=== PATIENT | female | born 1955 | race Caucasian/White ===

== ENCOUNTER 2017-05-12 11:29 | Day surgery (SDC) | payer BC ==
[~2017-05-12 11:29] MED LIST: Lactated Ringers 1,000 ML IV SCH; Lidocaine 1% 4 ML ONE; Lidocaine 1%/Sod Bicarbonate in NS 8.4% 1 ML Syringe PRN; Midazolam 1 MG/ML 2 ML SDV ONE; Propofol 200 MG/20 ML SDV ONE; Sodium Chloride 0.9% 10 ML Syringe FLUSH PRN; ceFAZolin 1 GM Vial ONE; fentaNYL 100 MCG/2 ML SDV ONE
[2017-05-12] MEDS ORDERED: Propofol 200 MG/20 ML SDV ONE ×2 (11:40→12:47)
[2017-05-12] MEDS ORDERED: Midazolam 1 MG/ML 2 ML SDV ONE (12:15)
[2017-05-12] MEDS ORDERED: Lidocaine 1% 30 ML SDV ONE (12:17)
[2017-05-12] MEDS ORDERED: Bupivacaine 0.25% 10 ML SDV ONE (12:17)
[2017-05-12] MEDS ORDERED: Vancomycin 1 GM, Vancomycin 500 MG in Sodium Chloride 0.9% 500 ML IV ONE (12:20)
[2017-05-12] MEDS ORDERED: Lactated Ringers 0 ML ONE (12:22)
--- NOTE | 2017-05-12 13:15 | PCM48HPAN ---
Post Anesthesia Note - EVALUATION WITHIN 48HRS OF ANESTHETIC Vital Signs in Normal Range: Yes Patient Participated in Evaluation: Yes Respiratory Function Stable: Yes Airway Patent: Yes Cardiovascular Function Stable: Yes Hydration Status Stable: Yes Pain Control Satisfactory: Yes Nausea and Vomiting Control Satisfactory: Yes Mental Status Recovered: Yes
--- NOTE | 2017-05-12 13:15 | PCM.PREANE ---
Preanesthetic Assessment - Procedure Proposed Procedure: Left CTR - Anesthesia/Transfusion/Family Hx Anesthesia History: Prior Anesthesia Without Reaction Family History of Anesthesia Reaction: No Transfusion History: No Prior Transfusion(s) Type of Transfusion Reactions: Reports: Unknown Intubation History: Unknown - Review of Systems General: No Symptoms Pulmonary: No Symptoms Cardiovascular: No Symptoms Gastrointestinal: Other (GERD) Neurological: No Symptoms, Numbness (to left hand from capral tunnel syndrome) Other: Reports: Diabetes (oral med controlled) - Physical Assessment NPO Status Date: 05/11/17 NPO Status Time: 19:00 O2 Sat by Pulse Oximetry: 95 Respiratory Rate: 20 Vital Signs: Last Vital Signs Temp 36.0 C 05/12/17 11:30 Pulse 86 05/12/17 11:30 Resp 20 05/12/17 11:30 BP 143/73 H 05/12/17 11:30 Pulse Ox 95 05/12/17 11:30 Height: 1.55 m Weight: 81.873 kg ASA Class: 2 Mental Status: Alert & Oriented x3 Airway Class: Mallampati = 2 Dentition: Reports: Normal Dentition Thyro-Mental Finger Breadths: 3 Mouth Opening Finger Breadths: 3 ROM/Head Extension: Full Lungs: Clear to auscultation, Normal respiratory effort Cardiovascular: Regular Rate, Regular Rhythm - Lab Values: Laboratory Last Values MRSA (PCR) Positive H 05/02/17 10:22 - Allergies Allergies/Adverse Reactions: Allergies Allergy/AdvReac Type Severity Reaction Status Date / Time Penicillins Allergy Anaphylactic Verified 05/12/17 12:28 Shock Sulfa (Sulfonamide Allergy Anaphylactic Verified 05/12/17 12:28 Antibiotics) Shock Tetanus Vaccines and Toxoid Allergy Anaphylactic Verified 05/12/17 12:28 Shock - Blood Blood Available: No Product(s) Available: None - Anesthesia Plan Pre-Op Medication Ordered: None Beta Tahir: Metoprolol Med Last Dose Date: 05/12/17 Med Last Dose Time: 06:00 - Acknowledgements Anesthesia Type Planned: MAC Pt an Appropriate Candidate for the Planned Anesthesia: Yes Alternatives and Risks of Anesthesia Discussed w Pt/Guardian: Yes Pt/Guardian Understands and Agrees with Anesthesia Plan: Yes PreAnesthesia Questionnaire HEENT History: Reports: Allergic Rhinitis, Sinusitis, Other (See Below) Other HEENT History: Conjunctivitis, bilateral myopia, nasal congestion, prosbyopia, astigmatism Cardiovascular History: Reports: High Cholesterol, Hypertension, Other (See Below) Other Cardiovascular History: Hypokalemia Respiratory History: Reports: None Gastrointestinal History: Reports: GERD, Other (See Below) Other Gastrointestinal History: Duodenal stricture, fatty liver disease Genitourinary History: Reports: UTI, Recurrent Musculoskeletal History: Reports: Fibromyalgia Neurological History: Reports: Migraines Psychiatric History: Reports: Anxiety, Depression, Other (See Below) Other Psychiatric History: Insomnia Endocrine/Metabolic History: Reports: Diabetes, Type II Hematologic History: Reports: Anemia Immunologic History: Reports: None Oncologic (Cancer) History: Reports: None Dermatologic History: Reports: None - Infectious Disease History Infectious Disease History: Reports: MRSA - Past Surgical History Head Surgeries/Procedures: Reports: None HEENT Surgical History: Reports: Other (See Below) Other HEENT Surgeries/Procedures: Nasal polyp removed Cardiovascular Surgical History: Reports: None Respiratory Surgical History: Reports: None GI Surgical History: Reports: Appendectomy, Cholecystectomy, Colonoscopy, EGD Female Surgical History: Reports: Hysterectomy Endocrine Surgical History: Reports: None Neurological Surgical History: Reports: None Musculoskeletal Surgical History: Reports: Carpal Tunnel Oncologic Surgical History: Reports: None Dermatological Surgical History: Reports: None - SUBSTANCE USE Smoking Status *Q: Never Smoker Second Hand Smoke Exposure: No Recreational Drug Use History: No - HOME MEDS Home Medications: Home Meds Aspirin [Halfprin] 81 mg PO DAILY 05/09/17 [History] Cetirizine [ZyrTEC] 10 mg PO DAILY 05/09/17 [History] DULoxetine [Cymbalta] 60 mg PO DAILY 05/09/17 [History] Diclofenac Sodium [Voltaren 1% Gel] 100 gm TOP ASDIRECTED PRN 05/09/17 [History] Gabapentin [Neurontin] 400 mg PO DAILY 05/09/17 [History] Hydrochlorothiazide 12.5 mg PO DAILY 05/09/17 [History] Iron,Carbonyl/Ascorbic Acid [Vitron-C Tablet] 2 tab PO DAILY 05/09/17 [History] Levothyroxine [Synthroid] 88 mcg PO DAILY 05/09/17 [History] Methocarbamol [Robaxin] 500 mg PO Q6H PRN 05/09/17 [History] Metoprolol Tartrate 50 mg PO BID 05/09/17 [History] Montelukast [Singulair] 10 mg PO DAILY 05/09/17 [History] Ranitidine HCl [Zantac 75] 75 mg PO DAILY PRN 05/09/17 [History] Rizatriptan Benzoate [Maxalt] 10 mg PO BEDTIME PRN 05/09/17 [History] atorvaSTATin [Lipitor] 40 mg PO BEDTIME 05/09/17 [History] metFORMIN HCl [Metformin HCl] 1,000 mg PO BID 05/09/17 [History] traZODone 75 mg PO BEDTIME 05/09/17 [History] Acetaminophen [Tylenol] 500 mg PO Q6HR PRN 05/12/17 [History] Acetaminophen/HYDROcodone [[place] 325-5 MG] 1 - 2 tab PO Q6H PRN #10 tablet 05/12 [Rx] Acetaminophen/traMADol [Ultracet] 50 mg PO Q6HR PRN 05/12/17 [History] - CURRENT (IN HOUSE) MEDS Current Meds: Current Medications Lactated Ringer's (Ringers, Lactated) 1,000 mls @ 125 mls/hr IV ASDIRECTED RYLEE Stop: 05/12/17 23:00 Last Admin: 05/12/17 12:00 Dose: 125 mls/hr Vancomycin HCl 1 gm/Vancomycin HCl 500 mg/ Sodium Chloride 500 mls @ 333 mls/ hr IV ONETIME ONE Stop: 05/12/17 13:50 Last Admin: 05/12/17 12:19 Dose: 333 mls/hr Lidocaine/Sodium Bicarbonate (Buffered Lidocaine 1% In Ns 8.4%) 0.25 ml .XX ONETIME PRN PRN Reason: Prior to IV Start Stop: 05/12/17 18:00 Last Admin: 05/12/17 11:59 Dose: 0.25 ml Sodium Chloride (Saline Flush) 10 ml FLUSH ASDIRECTED PRN PRN Reason: Keep Vein Open Stop: 05/12/17 18:00 Discontinued Medications Bupivacaine HCl (Sensorcaine-Mpf 0.25%) Confirm Administered Dose 30 ml .ROUTE .STK-MED ONE Stop: 05/12/17 12:18 Cefazolin Sodium (Ancef) Confirm Administered Dose 1 gm .ROUTE .STK-MED ONE Stop: 05/12/17 11:15 Cefazolin Sodium (Ancef) Confirm Administered Dose 1 gm .ROUTE .STK-MED ONE Stop: 05/12/17 11:15 Fentanyl (Sublimaze) Confirm Administered Dose 100 mcg .ROUTE .STK-MED ONE Stop: 05/12/17 10:04 Lidocaine HCl (Xylocaine-Mpf 1%) Confirm Administered Dose 4 mls @ as directed .ROUTE .STK-MED ONE Stop: 05/12/17 10:03 Lactated Ringer's (Ringers, Lactated) Confirm Administered Dose 1,000 mls @ as directed .ROUTE .STK-MED ONE Stop: 05/12/17 12:23 Lidocaine HCl (Xylocaine-Mpf 1%) Confirm Administered Dose 30 ml .ROUTE .STK- MED ONE Stop: 05/12/17 12:18 Midazolam HCl (Versed 1 Mg/Ml) Confirm Administered Dose 2 mg .ROUTE .STK-MED ONE Stop: 05/12/17 10:04 Midazolam HCl (Versed 1 Mg/Ml) Confirm Administered Dose 2 mg .ROUTE .STK-MED ONE Stop: 05/12/17 12:16 Propofol (Diprivan 20 Ml) Confirm Administered Dose 200 mg .ROUTE .STK-MED ONE Stop: 05/12/17 10:03 Propofol (Diprivan 20 Ml) Confirm Administered Dose 200 mg .ROUTE .STK-MED ONE Stop: 05/12/17 11:41 Propofol (Diprivan 20 Ml) Confirm Administered Dose 200 mg .ROUTE .STK-MED ONE Stop: 05/12/17 12:48
[2017-05-12] MEDS ORDERED: Acetaminophen/HYDROcodone 325-5 MG Tab PO ONE (14:00)
[2017-05-12 14:43] VITALS: BP 185/63
--- NOTE | 2017-05-15 23:03 | PCM.OPNOTE ---
- General Post-Op/Procedure Note Date of Surgery/Procedure: 05/12/17 Operative Procedure(s): left carpal tunnel release Pre Op Diagnosis: left median nerve compression neuropathy Post-Op Diagnosis: Same Anesthesia Technique: Local, MAC Primary Surgeon: Joao Jefferson Anesthesia Provider: Bo Potter Supervisor Engine Repair: Hortencia Rogel EBL in mLs: 5 Complications: None Condition: Good
--- NOTE | 2017-05-15 23:32 | OR ---
DATE OF OPERATION: 05/12/2017 SURGEON: Joao Jefferson MD OPERATIVE PROCEDURE: Left carpal tunnel release. PREOPERATIVE DIAGNOSIS: Left median nerve compression neuropathy. POSTOPERATIVE DIAGNOSIS: Left median nerve compression neuropathy. ANESTHESIA: Local MAC. ANESTHESIA PROVIDER: Dr. Bo Potter. ASSISTANTS: Hortencia Rogel PA-C. ESTIMATED BLOOD LOSS: Less than 5 mL. COMPLICATIONS: None. CONDITION: Stable. DESCRIPTION OF PROCEDURE: The patient was identified in the preop holding area. Proper site was marked and identified by the surgeon. The patient was taken back to the operating theater where after adequate anesthesia, the patient's left upper extremity was sterilely prepped and draped in usual sterile fashion. OR time-out was performed. The patient received no antibiotic as she is not indicated for soft tissue hand procedure. At this time, the left upper extremity had an Esmarch, used a tourniquet on the forearm. Using 1% lidocaine without epinephrine and 0.25% Marcaine without epinephrine, the palmar cutaneous branch of the median nerve was anesthetized dorsally, 10 cm proximal to the distal wrist crease. At this time, the incisional site was also anesthetized using the same mixture using Rincon's cardinal line on the ulnar border of the fourth digit. Incision was then made, taken down to the palmar cutaneous fascia. Palmar cutaneous fascia was then incised with a [place] blade. [place] blade was then used to make a small rent in transverse carpal ligament. A [place] elevator was then placed distally under the transverse carpal ligament and this was released all the way distally just stopping short of palmar arch. This found to be adequate release. Attention was turned proximally. A tenotomy scissor was then used for release of the superficial forearm fascia and the transverse carpal ligament to make sure to keep the tips ulnar to protect the palmar cutaneous branch of the median nerve. There was found to be adequate release both proximally and distally. Adequate saline was then irrigated through the wound. A 4-0 nylon simple suture was used for closure of the skin. The patient tolerated the procedure well and sent to PACU in stable condition. OPERATION PERFORMED: MMODAL /[id number]
== END 2017-05-12 14:30 | disposition home or self-care (01) ==
LOC: JD.SDS 11:29
PROVIDERS: ATTEND Orthopaedic Surgery
PROC: 01N50ZZ Release Median Nerve, Open Approach (ICD-10-PCS; principal; 2017-05-12)
DX: G56.12 Other lesions of median nerve, left upper limb (principal); E11.9 Type 2 diabetes mellitus without complications; K76.0 Fatty (change of) liver, not elsewhere classified; K21.9 Gastro-esophageal reflux disease without esophagitis; I10 Essential (primary) hypertension
CPT/HCPCS: 64721; 87641; A9270; J0690; J2250; J3010; J3370; J7040; J7120; 01810; J2704

== ENCOUNTER 2020-03-23 09:05 | Day surgery (SDC) | payer OTHER, BC ==
--- NOTE | 2020-03-21 13:37 | PCM.PREANE ---
Preanesthetic Assessment - Procedure Proposed Procedure: Right CTR and Right First carpometacarpal joint arthroplasty - Anesthesia/Transfusion/Family Hx Anesthesia History: Prior Anesthesia Without Reaction Family History of Anesthesia Reaction: No Transfusion History: No Prior Transfusion(s) Intubation History: Unknown - Review of Systems General: No Symptoms Pulmonary: No Symptoms (Asthma-Flovent taken and zyrtec./DANIELE no CPAP) Cardiovascular: No Symptoms (HTN) Gastrointestinal: No Symptoms (GERD-controlled), Constipation Neurological: No Symptoms (fibromyalgia), Headache (migraines) Other: Reports: Diabetes (Am blood sugar=), Liver Problems (non ETOH fatty liver ), Thyroid Problems (hypothyroid), Sinus Problem (seasonal allergies), Neck Pain (01/10), Depression, Anxiety - Physical Assessment NPO Status Date: 03/22/20 NPO Status Time: 18:30 Vital Signs: HR:79 BP:119/44 Sat:98% Temp:97.7 Resp:16 Height: 1.55 m Weight: 81 kg ASA Class: 2 Mental Status: Alert & Oriented x3 Airway Class: Mallampati = 2 Dentition: Reports: Normal Dentition, Caries Thyro-Mental Finger Breadths: 3 Mouth Opening Finger Breadths: 3 ROM/Head Extension: Full Lungs: Clear to Auscultation, Normal Respiratory Effort Cardiovascular: Regular Rate, Regular Rhythm, No Murmurs - Lab Values: All labs reviewed and noted and within acceptable ranges to proceed with scheduled procedure. - Imaging/EKG Impressions: EKG: SR rate=75, abnormal R wave progression - Allergies Allergies/Adverse Reactions: Allergies Allergy/AdvReac Type Severity Reaction Status Date / Time Penicillins Allergy Anaphylactic Verified 03/22/20 14:43 Shock Sulfa (Sulfonamide Allergy Anaphylactic Verified 03/22/20 14:43 Antibiotics) Shock - Anesthesia Plan Pre-Op Medication Ordered: Beta Tahir Beta Tahir: Metoprolol Med Last Dose Date: 03/23/20 Med Last Dose Time: 07:00 - Acknowledgements Anesthesia Type Planned: General Anesthesia Pt an Appropriate Candidate for the Planned Anesthesia: Yes Alternatives and Risks of Anesthesia Discussed w Pt/Guardian: Yes Pt/Guardian Understands and Agrees with Anesthesia Plan: Yes PreAnesthesia Questionnaire HEENT History: Reports: Allergic Rhinitis, Sinusitis, Other (See Below) Other HEENT History: Conjunctivitis, bilateral myopia, nasal congestion, prosbyopia, astigmatism Cardiovascular History: Reports: High Cholesterol, Hypertension, Other (See Below) Other Cardiovascular History: Hypokalemia Respiratory History: Reports: None Gastrointestinal History: Reports: GERD, Other (See Below) Other Gastrointestinal History: Duodenal stricture, fatty liver disease Genitourinary History: Reports: UTI, Recurrent Musculoskeletal History: Reports: Fibromyalgia Neurological History: Reports: Migraines Psychiatric History: Reports: Anxiety, Depression, Other (See Below) Other Psychiatric History: Insomnia Endocrine/Metabolic History: Reports: Diabetes, Type II Hematologic History: Reports: Anemia Immunologic History: Reports: None Oncologic (Cancer) History: Reports: None Dermatologic History: Reports: None - Infectious Disease History Infectious Disease History: Reports: MRSA - Past Surgical History Head Surgeries/Procedures: Reports: None HEENT Surgical History: Reports: Other (See Below) Other HEENT Surgeries/Procedures: Nasal polyp removed Cardiovascular Surgical History: Reports: None Respiratory Surgical History: Reports: None GI Surgical History: Reports: Appendectomy, Cholecystectomy, Colonoscopy, EGD Female Surgical History: Reports: Hysterectomy Endocrine Surgical History: Reports: None Neurological Surgical History: Reports: None Musculoskeletal Surgical History: Reports: Carpal Tunnel Oncologic Surgical History: Reports: None Dermatological Surgical History: Reports: None - HOME MEDS Home Medications: Home Meds Aspirin [Halfprin] 81 mg PO DAILY 05/09/17 [History] Cetirizine [ZyrTEC] 10 mg PO DAILY 05/09/17 [History] DULoxetine [Cymbalta] 60 mg PO DAILY 05/09/17 [History] Diclofenac Sodium [Voltaren 1% Gel] 100 gm TOP ASDIRECTED PRN 05/09/17 [History] Iron,Carbonyl/Ascorbic Acid [Vitron-C Tablet] 2 tab PO DAILY 05/09/17 [History] Methocarbamol [Robaxin] 500 mg PO Q6H PRN 05/09/17 [History] Metoprolol Tartrate 50 mg PO BID 05/09/17 [History] Montelukast [Singulair] 10 mg PO DAILY 05/09/17 [History] metFORMIN HCl [Metformin HCl] 1,000 mg PO BID 05/09/17 [History] Acetaminophen [Tylenol Extra Strength] 1,000 mg PO Q6H PRN 03/22/20 [History] Albuterol [Proair HFA] 1 puff INH Q6H 03/22/20 [History] Cortisol Curtain Fitter 1 dose PO DAILY 03/22/20 [History] Erenumab-Aooe [Aimovig Autoinjector] 1 dose SQ ASDIRECTED 03/22/20 [History] Famotidine 20 mg PO DAILY 03/22/20 [History] Fluticasone Propionate [Flonase] 1 dose NASBOTH DAILY 03/22/20 [History] Fluticasone Propionate [Flovent HFA 110 MCG] 1 puff INH BID 03/22/20 [History] Gabapentin [Neurontin] 50 mg PO DAILY 03/22/20 [History] Gabapentin [Neurontin] 100 mg PO BEDTIME 03/22/20 [History] Ibuprofen 200 mg PO Q4H PRN 03/22/20 [History] Levothyroxine Sodium [Levoxyl] 100 mcg PO ACBREAKFAST 03/22/20 [History] Lidocaine [Lidocaine 5%] 1 dose TOP Q12H 03/22/20 [History] Rizatriptan Benzoate [Rizatriptan] 10 mg PO BEDTIME 03/22/20 [History] Urea 1 dose TOP ASDIRECTED 03/22/20 [History] atorvaSTATin Calcium [Atorvastatin Calcium] 80 mg PO BEDTIME 03/22/20 [History] lisinopriL [Lisinopril] 20 mg PO DAILY 03/22/20 [History] traZODone HCl [Trazodone HCl] 100 mg PO BEDTIME 03/22/20 [History] Acetaminophen/HYDROcodone [[place] 325-5 MG] 1 - 2 tab PO Q6H PRN #40 tablet 03/23 [Rx] - CURRENT (IN HOUSE) MEDS Current Meds: Current Medications Lactated Ringer's (Ringers, Lactated) 1,000 mls @ 125 mls/hr IV ASDIRECTED RYLEE Stop: 03/23/20 23:00 Lidocaine/Sodium Bicarbonate (Buffered Lidocaine 1% In Ns 8.4%) 0.25 ml IDERM ONETIME PRN PRN Reason: Prior to IV Start Stop: 03/23/20 23:00 Sodium Chloride (Saline Flush) 10 ml FLUSH ASDIRECTED PRN PRN Reason: Keep Vein Open Stop: 03/23/20 23:00
[~2020-03-23 09:05] MED LIST changes: +Dexamethasone 4 MG/ML 5 ML MDV ONE; +HYDROmorphone 0.5 MG/0.5 ML Syringe ONE; +Ketorolac 30 MG/ML SDV ONE; +Lactated Ringers 1,000 ML ONE; -Lidocaine 1% 4 ML ONE; +Lidocaine 1% 6 ML ONE; +Lidocaine 1%/Sod Bicarbonate in NS 8.4% 1 ML Syringe IDERM PRN; -Lidocaine 1%/Sod Bicarbonate in NS 8.4% 1 ML Syringe PRN; +Ondansetron 4 MG/2 ML SDV ONE; -fentaNYL 100 MCG/2 ML SDV ONE; +fentaNYL 250 MCG/5 ML SDV ONE
[2020-03-23] MEDS ORDERED: Triamcinolone Acetonide 40 MG/ML 1 ML MDV ONE (09:13)
[2020-03-23] MEDS ORDERED: Bupivacaine 0.25% 10 ML SDV ONE ×2 (09:14)
[2020-03-23] MEDS ORDERED: Albuterol 0.083% 2.5 MG/3 ML Neb Soln NEB ONE (10:05)
[2020-03-23] MEDS ORDERED: fentaNYL 100 MCG/2 ML SDV IVPUSH PRN (10:54)
[2020-03-23] MEDS ORDERED: Ondansetron 4 MG/2 ML SDV IVPUSH PRN (10:54)
[2020-03-23] MEDS ORDERED: Albuterol 0.083% 2.5 MG/3 ML Neb Soln NEB PRN (10:54)
[2020-03-23] MEDS ORDERED: ePHEDrine 50 MG/ML SDV IVPUSH PRN (10:54)
[2020-03-23] MEDS ORDERED: diphenhydrAMINE 50 MG/ML SDV IVPUSH PRN (10:54)
[2020-03-23] MEDS ORDERED: HYDROmorphone 0.5 MG/0.5 ML Syringe IVPUSH PRN (10:57)
[2020-03-23] MEDS ORDERED: Phenylephrine 1 MG in Sodium Chloride 0.9% 10 ML IV SCH (11:00)
[2020-03-23] MEDS ORDERED: HYDROmorphone 0.5 MG/0.5 ML Syringe ONE ×2 (11:14→12:13)
[2020-03-23] MEDS ORDERED: fentaNYL 100 MCG/2 ML SDV ONE (12:13)
--- NOTE | 2020-03-23 12:21 | CR ---
Right wrist: 6 fluoroscopic spot views were obtained of the right wrist utilizing C-arm device. Study shows excision of the trapezius bone. Final film shows anchors in place between the 1st and 2nd metacarpals. Fluoroscopy time given as 8.6 seconds. Impression: 1. Procedural study as noted above. Diagnostic code #2 This report was dictated in MDT
--- NOTE | 2020-03-23 12:39 | PCM.POSTAN ---
POST ANESTHESIA ASSESSMENT - MENTAL STATUS Mental Status: Alert - VITAL SIGNS Vital Signs: Last Vital Signs Temp 98.2 03/23/2020 1205 Pulse 91 03/23/2020 1205 Resp 11 03/23/2020 1205 BP 124/84 03/23/2020 1205 Pulse Ox 95 03/23/20 1205 - RESPIRATORY Respiratory Status: Respiratory Rate WNL, Airway Patent, O2 Saturation Stable, Supplemental Oxygen - CARDIOVASCULAR CV Status: Pulse Rate WNL, Blood Pressure Stable - GASTROINTESTINAL GI Status: No Symptoms - POST OP HYDRATION Hydration Status: Adequate & Stable
[2020-03-23] MEDS ORDERED: Acetaminophen/HYDROcodone 325-5 MG Tab PO PRN (13:03)
--- NOTE | 2020-03-23 13:36 | PCM48HPAN ---
Post Anesthesia Note - EVALUATION WITHIN 48HRS OF ANESTHETIC Vital Signs in Normal Range: Yes Patient Participated in Evaluation: Yes Respiratory Function Stable: Yes Airway Patent: Yes Cardiovascular Function Stable: Yes Hydration Status Stable: Yes Pain Control Satisfactory: Yes Nausea and Vomiting Control Satisfactory: Yes Mental Status Recovered: Yes Vital Signs: Last Vital Signs Temp 37.0 C 03/23/20 13:05 Pulse 84 03/23/20 13:05 Resp 16 03/23/20 13:05 BP 129/75 03/23/20 13:05 Pulse Ox 94 L 03/23/20 13:05
[2020-03-23] MEDS ORDERED: Ketorolac 30 MG/ML SDV IVPUSH ONE (13:48)
[2020-03-23 17:30] VITALS: BP 139/78; PULSE 103
--- NOTE | 2020-03-28 11:20 | PCM.OPNOTE ---
- General Post-Op/Procedure Note Date of Surgery/Procedure: 03/23/20 Operative Procedure(s): right wrist trapeziectomy with tight rope suspension arthroplasty. right carpal tunnel release. 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
--- NOTE | 2020-03-29 09:59 | OR ---
DATE OF OPERATION: 03/23/2020 SURGEON: Joao Jefferson MD OPERATION PERFORMED: 1. Right wrist trapeziectomy with TightRope suspension arthroplasty. 2. Right carpal tunnel release. 3. Left 1st CMC joint injection. 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 ANESTHESIA: General LMA with local. ANESTHESIA PROVIDER: Merle Rush. ASSESSMENT: Hortencia Rogel PA-C ESTIMATED BLOOD LOSS: Less than 5 mL. COMPLICATIONS: None. CONDITION: Stable. DESCRIPTION OF PROCEDURE: The patient was identified in the preoperative holding area. Proper site was marked and identified by surgeon. The patient was taken back to the operating theater where after adequate anesthesia, the patient's right upper extremity was sterilely prepped and draped in the usual sterile fashion. OR time-out was performed. The patient received 2 g of IV Ancef. Right upper extremity was exsanguinated. Tourniquet was insufflated to 225 mmHg. At this time, we decided to do the carpal tunnel first, so using Rincon cardinal line and ulnar border of the fourth digit, an incision site was marked, incision was made, blunt dissection was taken down to the palmar cutaneous fascia. Palmar cutaneous fascia was then released both proximally and distally making sure to stop short of the palmar arch and keeping the tips ulnar proximally to protect the palmar cutaneous branch of the median nerve. Once it was found to be adequate release, attention was turned to the trapeziectomy portion. An incision was made over the radial side near the base of the 1st metacarpal. Skin incision was made. This was taken through the subcutaneous tissues. The vessel proximally was retracted and protected with a Ragnell retractor. Capsulotomy was performed. The trapezium was then identified and utilizing C- arm fluoroscopy and a resection using osteotomes as well as a rongeur was done with complete resection of the trapezium, making sure on C-arm fluoroscopy that it was completely removed with no other parts of the bone remaining. Once this was completely removed, the Arthrex TightRope suspension system was opened and the guide pin with the TightRope was then placed from the base of the 1st metacarpal into the 2nd metacarpal shaft. It was found to be in adequate position. The patient was able to make a flat palm as well as oppose thumb with the digit under passive motion. The incision was made over the dorsum of the 2nd metacarpal. This was taken down to the bone where the pin was coming out from and the TightRope suture was brought up through the 2nd metacarpal. The sutures were cut and the Endobutton on the 2nd metacarpal was placed. Tension was held and then knot was tied, securing it for a TightRope suspension arthroplasty. It was found to have adequate positioning on C-arm fluoroscopy. At this time, adequate saline was irrigated through both incisions. 3-0 Vicryl was used subcutaneously on the radial incision. 4-0 nylon was used for closure otherwise of the skin on both incisions. The patient was placed in a sterile soft dressing and a splint. After this was completed, under sterile technique, 1 mL of 40 mg Kenalog and 1 mL of 0.25% Marcaine were injected to the base of the left 1st CMC joint. The patient tolerated all procedures well and sent to the PACU in stable condition. KAM /[id number]
== END 2020-03-23 17:15 | disposition home or self-care (01) ==
LOC: JD.SDS 09:05 → JD.MS 15:59 → JD.SDS 17:15
PROVIDERS: ATTEND Orthopaedic Surgery
DX: G56.01 Carpal tunnel syndrome, right upper limb (principal); M18.11 Unilateral primary osteoarthritis of first carpometacarpal joint, right hand; M18.12 Unilateral primary osteoarthritis of first carpometacarpal joint, left hand; G62.9 Polyneuropathy, unspecified; E03.9 Hypothyroidism, unspecified; I10 Essential (primary) hypertension; E11.9 Type 2 diabetes mellitus without complications; E78.5 Hyperlipidemia, unspecified; F41.9 Anxiety disorder, unspecified; F32.9 Major depressive disorder, single episode, unspecified; Z79.899 Other long term (current) drug therapy; Z79.84 Long term (current) use of oral hypoglycemic drugs
CPT/HCPCS: 20600; 25447; 64721; 76000; 82962; 87635; 94640; A9270; C1776; J0690; J1170; J1885; J2001; J2250; J2370; J2405; J2704; J2710; J3010; J3301; J3370; J3490; J7050; J7120; 01810; J1100; U0002

== ENCOUNTER → 2021-07-23 | Day surgery (SDC) | payer BC ==
[~2021-07-23] MED LIST changes: +Acetaminophen/HYDROcodone 325-10 MG Tab PO PRN; +Acetaminophen/HYDROcodone 325-5 MG Tab PO STA; +Albuterol 6.7 GM Inhaler INH ONE; +Bupivacaine 0.5%/EPINEPHrine 1:200,000 50 ML MDV ONE; +HYDROmorphone 0.5 MG/0.5 ML Syringe IVPUSH PRN; -HYDROmorphone 0.5 MG/0.5 ML Syringe ONE; +Lidocaine 1% 4 ML ONE; -Lidocaine 1% 6 ML ONE; +Ondansetron 4 MG/2 ML SDV IVPUSH PRN; +Rocuronium 50 MG/5 ML Vial ONE; -ceFAZolin 1 GM Vial ONE; +diphenhydrAMINE 50 MG/ML SDV ONE; +fentaNYL 100 MCG/2 ML SDV IVPUSH PRN
--- NOTE | 2021-07-23 07:50 | PCM.PREANE ---
Preanesthetic Assessment - Procedure Proposed Procedure: open umbilical hernia repair - Anesthesia/Transfusion/Family Hx Anesthesia History: Prior Anesthesia Without Reaction Family History of Anesthesia Reaction: No Transfusion History: No Prior Transfusion(s) Type of Transfusion Reactions: Reports: Unknown Intubation History: Unknown - Review of Systems General: No Symptoms Pulmonary: No Symptoms, Other (asthma history - has an inhaler, used flovant this morning, instructed to take at home albuterol inhaler before the case ) Gastrointestinal: No Symptoms Neurological: No Symptoms, Headache (history of migraines, trigger by fasting, small NEAL now from npo ) Other: Reports: None, Diabetes - Physical Assessment NPO Status Date: 07/22/21 NPO Status Time: 06:30 Height: 1.55 m Weight: 77.5 kg ASA Class: 3 Mental Status: Alert & Oriented x3 Airway Class: Mallampati = 2 Dentition: Reports: Normal Dentition Thyro-Mental Finger Breadths: 3 Mouth Opening Finger Breadths: 4 ROM/Head Extension: Full Lungs: Clear to Auscultation, Normal Respiratory Effort Cardiovascular: Regular Rate, Regular Rhythm - Allergies Allergies/Adverse Reactions: Allergies Allergy/AdvReac Type Severity Reaction Status Date / Time Penicillins Allergy Anaphylactic Verified 07/21/21 11:15 Shock Sulfa (Sulfonamide Allergy Anaphylactic Verified 07/21/21 11:15 Antibiotics) Shock - Blood Blood Available: No - Anesthesia Plan Pre-Op Medication Ordered: None, Other - Acknowledgements Anesthesia Type Planned: General Anesthesia (LMA due to neckbeing sore from manipulation of airway with her DANIELE and body habitus from EGD last week she has been going to the chiropractor to treat ) Pt an Appropriate Candidate for the Planned Anesthesia: Yes Alternatives and Risks of Anesthesia Discussed w Pt/Guardian: Yes Pt/Guardian Understands and Agrees with Anesthesia Plan: Yes PreAnesthesia Questionnaire HEENT History: Reports: Allergic Rhinitis, Sinusitis, Other (See Below) Other HEENT History: Conjunctivitis, bilateral myopia, nasal congestion, prosbyopia, astigmatism Cardiovascular History: Reports: High Cholesterol, Hypertension, Other (See Below) Other Cardiovascular History: Hypokalemia Respiratory History: Reports: Asthma, Sleep Apnea Gastrointestinal History: Reports: GERD, Other (See Below) Other Gastrointestinal History: Duodenal stricture, fatty liver disease Genitourinary History: Reports: UTI, Recurrent LEAD AUDITOR History: Reports: None Musculoskeletal History: Reports: Fibromyalgia, RA Neurological History: Reports: Migraines Psychiatric History: Reports: Anxiety, Depression, Other (See Below) Other Psychiatric History: Insomnia Endocrine/Metabolic History: Reports: Diabetes, Type II Hematologic History: Reports: Anemia Immunologic History: Reports: None Oncologic (Cancer) History: Reports: None Dermatologic History: Reports: None - Infectious Disease History Infectious Disease History: Reports: MRSA - Past Surgical History Head Surgeries/Procedures: Reports: None HEENT Surgical History: Reports: Other (See Below) Other HEENT Surgeries/Procedures: Nasal polyp removed Cardiovascular Surgical History: Reports: None Respiratory Surgical History: Reports: None GI Surgical History: Reports: Appendectomy, Cholecystectomy, Colonoscopy, EGD Female Surgical History: Reports: Hysterectomy Male Surgical History: Reports: None Endocrine Surgical History: Reports: None Neurological Surgical History: Reports: None Musculoskeletal Surgical History: Reports: Carpal Tunnel, Other (See Below) Other Musculoskeletal Surgeries/Procedures:: CMC surgery with hardware Oncologic Surgical History: Reports: None Dermatological Surgical History: Reports: None - SUBSTANCE USE Tobacco Use Status *Q: Never Tobacco User Recreational Drug Use History: No - HOME MEDS Home Medications: Home Meds Aspirin [Halfprin] 81 mg PO DAILY 05/09/17 [History] Cetirizine [ZyrTEC] 10 mg PO DAILY 05/09/17 [History] Diclofenac Sodium [Voltaren 1% Gel] 1 dose TOP QID PRN 05/09/17 [History] Iron,Carbonyl/Ascorbic Acid [Vitron-C Tablet] 2 tab PO DAILY 05/09/17 [History] Metoprolol Tartrate 50 mg PO BID 05/09/17 [History] Montelukast [Singulair] 10 mg PO DAILY 05/09/17 [History] metFORMIN HCl [Metformin HCl] 1,000 mg PO BID 05/09/17 [History] Acetaminophen [Tylenol Extra Strength] 1,000 mg PO TID PRN 03/22/20 [History] Albuterol [Proair HFA] 1 puff INH Q6H 03/22/20 [History] Fluticasone Propionate [Flonase] 1 dose NASBOTH DAILY 03/22/20 [History] Fluticasone Propionate [Flovent HFA 110 MCG] 1 puff INH BID 03/22/20 [History] Ibuprofen 200 mg PO Q4H PRN 03/22/20 [History] Levothyroxine Sodium [Levoxyl] 100 mcg PO ACBREAKFAST 03/22/20 [History] Lidocaine [Lidocaine 5%] 1 dose TOP Q12H 03/22/20 [History] Rizatriptan Benzoate [Rizatriptan] 10 mg PO BEDTIME 03/22/20 [History] atorvaSTATin Calcium [Atorvastatin Calcium] 80 mg PO BEDTIME 03/22/20 [History] lisinopriL [Lisinopril] 20 mg PO DAILY 03/22/20 [History] traZODone HCl [Trazodone HCl] 100 mg PO BEDTIME 03/22/20 [History] DULoxetine [Cymbalta] 60 mg PO DAILY 07/21/21 [History] Famotidine [Pepcid] 20 mg PO DAILY 07/21/21 [History] Gabapentin [Neurontin] 300 mg PO BID 07/21/21 [History] Gabapentin [Neurontin] 600 mg PO BEDTIME 07/21/21 [History] Mupirocin Calcium [Bactroban] 1 dose TOP ASDIRECTED 07/21/21 [History] ondansetron HCL [Zofran] 4 mg PO Q4H PRN 07/21/21 [History] tiZANidine HCl [Zanaflex] 4 mg PO BEDTIME 07/21/21 [History] - CURRENT (IN HOUSE) MEDS Current Meds: Current Medications Lactated Ringer's (Ringers, Lactated) 1,000 mls @ 125 mls/hr IV ASDIRECTED RYLEE Stop: 07/23/21 23:00 Lidocaine/Sodium Bicarbonate (Lidocaine 1%/Sod Bicarbonate In Ns 8.4% 1 Ml Syringe) 0.25 ml IDERM ONETIME PRN PRN Reason: Prior to IV Start Stop: 07/23/21 18:00 Sodium Chloride (Sodium Chloride 0.9% 10 Ml Syringe) 10 ml FLUSH ASDIRECTED PRN PRN Reason: Keep Vein Open Stop: 07/23/21 18:00 Discontinued Medications Bupivacaine HCl/Epinephrine Bitart (Bupivacaine 0.5%/Epinephrine 1:200,000 50 Ml Mdv) Confirm Administered Dose 50 ml .ROUTE .STK-MED ONE Stop: 07/23/21 07:25 Fentanyl (Fentanyl 250 Mcg/5 Ml Sdv) Confirm Administered Dose 250 mcg .ROUTE .STK-MED ONE Stop: 07/23/21 07:26 Lidocaine HCl (Xylocaine-Mpf 1%) Confirm Administered Dose 4 mls @ as directed .ROUTE .STK-MED ONE Stop: 07/23/21 07:27 Midazolam HCl (Midazolam 1 Mg/Ml 2 Ml Sdv) Confirm Administered Dose 2 mg .ROUTE .STK-MED ONE Stop: 07/23/21 07:26 Propofol (Propofol 200 Mg/20 Ml Sdv) Confirm Administered Dose 400 mg .ROUTE .STK-MED ONE Stop: 07/23/21 07:26 Rocuronium [place] (Rocuronium 50 Mg/5 Ml Vial) Confirm Administered Dose 50 mg .ROUTE .STK-MED ONE Stop: 07/23/21 07:27
--- NOTE | 2021-07-23 13:05 | PCM.POSTAN ---
POST ANESTHESIA ASSESSMENT - MENTAL STATUS Mental Status: Alert - VITAL SIGNS Vital Signs: Last Vital Signs 149/103 98 - 2L 100 15 98.3 Temp 36.8 C 07/23/21 07:15 Pulse 74 07/23/21 07:15 Resp 16 07/23/21 07:15 BP 159/90 H 07/23/21 07:15 Pulse Ox 95 07/23/21 07:15 - RESPIRATORY Respiratory Status: Respiratory Rate WNL, Airway Patent, O2 Saturation Stable, Supplemental Oxygen - CARDIOVASCULAR CV Status: Pulse Rate WNL, Blood Pressure Stable - GASTROINTESTINAL GI Status: No Symptoms - PAIN Pain Score: 0 - POST OP HYDRATION Hydration Status: Adequate & Stable
--- NOTE | 2021-07-23 13:26 | OR ---
DATE OF OPERATION: 07/23/2021 SURGEON: Luciano Pabon MD PREOPERATIVE DIAGNOSIS: Symptomatic umbilical hernia. POSTOPERATIVE DIAGNOSIS: Symptomatic umbilical hernia. OPERATION PERFORMED: Laparoscopic umbilical hernia repair with mesh. ANESTHESIA: General endotracheal with local anesthetic consisting of 0.5 bupivacaine. ESTIMATED BLOOD LOSS: 10 mL. COMPLICATIONS: None. MESH USED: VentraLight ST mesh, 11.4 cm diameter INDICATION AND CONSENT: Ms. Somers is a 65-year-old female with prior history of cholecystectomy, appendectomy, hysterectomy who presented to my clinic with 3 months of worsening umbilical pain, especially with straining and activities. I examined the patient and felt an umbilical hernia. I offered her umbilical hernia repair with mesh. Initially, we agreed to proceed with an open approach. 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 Due to this, the procedure was changed to laparoscopic to minimize her risk for mesh infection with MRSA. I discussed with the patient again risks, benefits, and alternatives and the patient agreed to proceed with the procedure and informed consent was obtained. DESCRIPTION OF PROCEDURE: The patient was taken to the operating room, placed in supine position. The patient was padded appropriately and SCDs were placed. Vancomycin had already been given as a preop antibiotic due to MRSA colonization. The patient's abdomen was prepped and draped in the usual sterile fashion. Ioban was used in the abdomen to further create a sterile field. Then, time-out was performed and we began the procedure by placing a Veress needle in the left upper quadrant and insufflated the abdomen to 15 mmHg. Then, 5 mm trocar was placed in the left lateral abdomen under visualization of 5 laparoscope. Upon entry into the abdomen, we did see couple of areas of serosal injury to the stomach due to Veress needle insertion. Stomach was distended. There was no leakage or bleeding. This area was watched and examined and it seemed to be intact. Then, we proceeded with placing an additional 5 mm trocar in the left lateral abdomen and another one in the left lower quadrant. Upon examining the abdomen further, the liver appeared to be fatty but smooth. Due to stomach distention, an OG tube was placed. The There were omental adhesions to the umbilicus with herniation into the umbilical defect. Omental adhesions around the umbilicus were taken down with hook cautery, and the hernia was cleared out. The hernia was small, measuring about 2.5 cm x 1 cm. Once the hernia was cleared out, I proceeded with primary closure of the hernia defect. This was done using transfascial sutures. 1-0 PDS was used, and the Lamont-Nola device was used to pass the sutures around the hernia and closing it primarily. Once this was done, the hernia was well reapproximated. Decision was made to proceed with mesh placement. The 11.4 cm round dual coated VentraLight ST mesh was brought into the field. This was marked so that the coated side faces the abdominal contents and anchoring sutures were placed in 4 quadrants. The anchoring sutures were 2-0 Prolene. The mesh was placed into the abdomen through one of the 5 mm trocars, and using a grasper, entered from the contralateral side. In the abdomen, the mesh was oriented appropriately. Abdomen was dessuflated to 8 mm Hg. Anchoring sutures were brought out through the stab incision placed on the abdominal wall using Lamont-Mckeon device. Then they were tied down so that the mesh was lying flat against the abdominal wall. Once this was done, SecureStrap was used to place absorbable tackers on the mesh in a double crown fashion and mesh was lying down flat against the abdominal wall. Once this was done, the abdomen was inspected once again and there were no other abnormalities. The abdomen was desufflated. The 5 mm trocar sites which were 4 of them were reapproximated at the skin level with 4-0 Monocryl stitches and Dermabond was placed. All the other stab incisions were just closed with Dermabond. The patient was awoken, extubated, and taken to the PACU for recovery. The patient will be allowed to return home today and follow up with me in clinic in 2 weeks. MMODAL /[id number] ADAN
--- NOTE | 2021-07-23 13:59 | PCM48HPAN ---
Post Anesthesia Note - EVALUATION WITHIN 48HRS OF ANESTHETIC Vital Signs in Normal Range: Yes Patient Participated in Evaluation: Yes Respiratory Function Stable: Yes Airway Patent: Yes Cardiovascular Function Stable: Yes Hydration Status Stable: Yes Pain Control Satisfactory: Yes Nausea and Vomiting Control Satisfactory: Yes Mental Status Recovered: Yes Vital Signs: Last Vital Signs Temp 37.1 C 07/23/21 13:35 Pulse 82 07/23/21 13:35 Resp 12 07/23/21 13:35 BP 137/89 07/23/21 13:35 Pulse Ox 94 L 07/23/21 13:35
[2021-07-23 17:43] VITALS: BP 174/91; PULSE 93
== END | disposition home or self-care (01) ==
LOC: JD.SDS 07:02
PROVIDERS: ATTEND Surgery
DX: K42.9 Umbilical hernia without obstruction or gangrene (principal); E78.5 Hyperlipidemia, unspecified; I10 Essential (primary) hypertension; K21.9 Gastro-esophageal reflux disease without esophagitis; E11.9 Type 2 diabetes mellitus without complications; G47.30 Sleep apnea, unspecified; Z90.49 Acquired absence of other specified parts of digestive tract; Z98.890 Other specified postprocedural states; Z88.0 Allergy status to penicillin; Z88.2 Allergy status to sulfonamides; Z01.812 Encounter for preprocedural laboratory examination; Z20.822 Contact with and (suspected) exposure to COVID-19
CPT/HCPCS: 49652; 87635; A9270; J1100; J1170; J1200; J1885; J2250; J2370; J2405; J2704; J2710; J3010; J3370; J3490; J7050; J7120; 00790; C1781; U0002

== ENCOUNTER 2025-06-27 06:00 | Day surgery (SDC) | payer BC ==
[~2025-06-27 06:00] MED LIST changes: -Acetaminophen/HYDROcodone 325-10 MG Tab PO PRN; -Acetaminophen/HYDROcodone 325-5 MG Tab PO STA; -Albuterol 6.7 GM Inhaler INH ONE; -Bupivacaine 0.5%/EPINEPHrine 1:200,000 50 ML MDV ONE; +Clindamycin Phosphate in D5W 900 MG in Premix Bag 1 BAG IV ONE; -Dexamethasone 4 MG/ML 5 ML MDV ONE; -HYDROmorphone 0.5 MG/0.5 ML Syringe IVPUSH PRN; -Ketorolac 30 MG/ML SDV ONE; -Lactated Ringers 1,000 ML IV SCH; -Lactated Ringers 1,000 ML ONE; -Lidocaine 1% 4 ML ONE; -Lidocaine 1%/Sod Bicarbonate in NS 8.4% 1 ML Syringe IDERM PRN; -Midazolam 1 MG/ML 2 ML SDV ONE; +Morphine 8 MG, EPINEPHrine 0.3 MG, Cefuroxime 750 MG, Ketorolac 30 MG, Sodium Chloride ... PRN; -Ondansetron 4 MG/2 ML SDV IVPUSH PRN; -Ondansetron 4 MG/2 ML SDV ONE; -Propofol 200 MG/20 ML SDV ONE; -Rocuronium 50 MG/5 ML Vial ONE; +Sodium Chloride 0.9% 10 ML Syringe FLUSH SCH; -diphenhydrAMINE 50 MG/ML SDV ONE; -fentaNYL 100 MCG/2 ML SDV IVPUSH PRN; -fentaNYL 250 MCG/5 ML SDV ONE
[2025-06-27] MEDS: Lactated Ringers 1,000 ML IV SCH (06:05)
[2025-06-27] MEDS: oxyCODONE ER 10 MG TAB.ER PO ONE (06:32)
[2025-06-27] MEDS ORDERED: Ondansetron 4 MG/2 ML SDV ONE (06:43)
[2025-06-27] MEDS ORDERED: propofoL 500 MG/50 ML 50 ML ONE (06:43)
[2025-06-27] MEDS ORDERED: dexmedeTOMIDine HCl 200 MCG/2 ML SDV ONE (06:44)
[2025-06-27] MEDS ORDERED: Ropivacaine 0.5% 5 MG/ML 30 ML SDV ONE (07:24)
[2025-06-27] MEDS ORDERED: Phenylephrine 1% 10 MG/ML SDV ONE (07:24)
[2025-06-27] MEDS ORDERED: Propofol 200 MG/20 ML SDV ONE (07:56)
[2025-06-27] MEDS: Morphine 8 MG, EPINEPHrine 0.3 MG, Ketorolac 30 MG, Sodium Chloride 0.9% 7.9 ML PRN (08:04)
[2025-06-27] MEDS ORDERED: Clindamycin Phosphate in D5W 900 MG in Premix Bag 1 BAG IV ONE (08:30)
[2025-06-27] MEDS ORDERED: Ondansetron 4 MG/2 ML SDV IVPUSH PRN (08:44)
[2025-06-27] MEDS ORDERED: fentaNYL 100 MCG/2 ML SDV IVPUSH PRN (08:44)
[2025-06-27 13:36] VITALS: BP 100/67; PULSE 72
== END 2025-06-27 12:50 | disposition home or self-care (01) ==
LOC: JD.SDS 06:00
PROVIDERS: ATTEND Orthopaedic Surgery
DX: M17.12 Unilateral primary osteoarthritis, left knee (principal); E78.5 Hyperlipidemia, unspecified; E66.9 Obesity, unspecified; E03.9 Hypothyroidism, unspecified; I12.9 Hypertensive chronic kidney disease with stage 1 through stage 4 chronic kidney disease, or unspecified chronic kidney disease; E11.22 Type 2 diabetes mellitus with diabetic chronic kidney disease; N18.31 Chronic kidney disease, stage 3a; Z68.34 Body mass index [BMI] 34.0-34.9, adult
CPT/HCPCS: 0055T; 27447; 64447; 73560; 97116; 97161; 97530; A9270; C1713; C1776; J0169; J0736; J1885; J2272; J2371; J2405; J2704; J2795; J3373; J7120; 01402